=== PATIENT | male | born 1945 | race Caucasian/White ===

== ENCOUNTER 2018-03-14 12:58 | Emergency (ER) | payer MEDICARE, OTHER ==
[2018-03-14] MEDS ORDERED: Aspirin 81 MG Tab.Chew PO ONE (13:37)
--- NOTE | 2018-03-14 13:37 | EDM.PDOC ---
ED HPI GENERAL MEDICAL PROBLEM - General Chief Complaint: Cardiovascular Problem Stated Complaint: CP Time Seen by Provider: 03/14/18 13:12 Source of Information: Reports: Patient History Limitations: Reports: No Limitations - History of Present Illness INITIAL COMMENTS - FREE TEXT/NARRATIVE: Silvino is a 72 yo male who presents to the ER after calling in talking to clinic nurse. States he was scheduled to see Dr. Mccain, his primary provider, at 2:15 today. Admits the chest discomfort had worsened with exertion so thought he better call in to see if he should be seen sooner. States he has been having some midsternal chest pain that radiates into his left arm and neck. States at rest the pain subsides but with any exertion seems to get worse. States it began on Monday while playing kickball with his grandchildren but went away. Admits to several bouts over the last couple of days and the pain will return with any increased activity. Feels that amount of exertion he could tolerate is getting worse as well. Denies any shortness of breath. No prior cardiac history. Onset: Gradual Onset Date: 03/10/18 Location: Reports: Chest Quality: Reports: Burning, Pressure Improves with: Reports: Rest Worsens with: Reports: Movement Associated Symptoms: Reports: Chest Pain. Denies: Diaphoresis, Nausea/Vomiting , Shortness of Breath, Syncope - Related Data Allergies Allergy/AdvReac Type Severity Reaction Status Date / Time No Known Allergies Allergy Verified 03/14/18 13:14 Home Meds: Home Meds . [No Known Home Meds] 10/22/15 [History] Past Medical History - Past Health History Medical/Surgical History: Denies Medical/Surgical History Genitourinary History: Reports: Prostate Disorder Other Genitourinary History: prostate surgery for CA Oncologic (Cancer) History: Reports: Prostate Social & Family History - Family History Family Medical History: Noncontributory - Tobacco Use Smoking Status *Q: Never Smoker Second Hand Smoke Exposure: No - Caffeine Use Caffeine Use: Reports: None - Recreational Drug Use Recreational Drug Use: No ED ROS GENERAL - Review of Systems Review Of Systems: ROS reveals no pertinent complaints other than HPI. Constitutional: Reports: No Symptoms HEENT: Reports: No Symptoms Respiratory: Denies: Shortness of Breath, Cough Cardiovascular: Reports: Chest Pain, Dyspnea on Exertion. Denies: Edema, Lightheadedness, Palpitations, Syncope GI/Abdominal: Reports: No Symptoms : Reports: No Symptoms Skin: Reports: No Symptoms Neurological: Reports: No Symptoms ED EXAM, GENERAL - Physical Exam Exam: See Below Exam Limited By: No Limitations General Appearance: Alert, Mild Distress Ears: Normal External Exam, Normal Canal, Hearing Grossly Normal, Normal TMs Nose: Normal Inspection, No Blood Throat/Mouth: Normal Inspection, Normal Lips, Normal Teeth, Normal Gums, Normal Oropharynx, Normal Voice, No Airway Compromise Head: Atraumatic, Normocephalic Neck: Normal Inspection, Supple Respiratory/Chest: No Respiratory Distress, Lungs Clear, Normal Breath Sounds, No Accessory Muscle Use Cardiovascular: Normal Peripheral Pulses, Regular Rate, Rhythm, No Edema, No Murmur GI/Abdominal: Normal Bowel Sounds, Soft, Non-Tender, No Organomegaly, No Distention, No Abnormal Bruit, No Mass, Pelvis Stable Extremities: Normal Inspection, No Pedal Edema, Normal Capillary Refill Neurological: Alert, Oriented, Normal Cognition, No Motor/Sensory Deficits Psychiatric: Normal Affect, Normal Mood Skin Exam: Warm, Dry, Intact, Normal Color, No Rash EKG INTERPRETATION EKG Date: 03/14/18 Rhythm: NSR ST-T: Other (t-wave inversion V1-V4) Comparison: NA - No Prior EKG Course - Vital Signs Last Recorded V/S: Last Vital Signs Temp 97.2 F 03/14/18 12:59 Pulse 73 03/14/18 12:59 Resp 20 03/14/18 12:59 BP 127/82 03/14/18 12:59 Pulse Ox 100 03/14/18 12:59 - Orders/Labs/Meds Orders: Active Orders 24 hr Category Date Time Status Chest 2V [CR] Stat Exams 03/14/18 13:09 Ordered BASIC METABOLIC PANEL,BMP [CHEM] Stat Lab 03/14/18 13:15 Received CREATINE KINASE,CK [CHEM] Stat Lab 03/14/18 13:15 Received INR,PT,PROTHROMBIN TIME [COAG] Stat Lab 03/14/18 13:15 Received TROPONIN I [CHEM] Stat Lab 03/14/18 13:15 Received EKG 12 Lead [EK] Routine Ther 03/14/18 13:05 Ordered Labs: Laboratory Tests 03/14/18 Range/Units 13:15 WBC 7.3 (5.0-10.0) 10^3/uL RBC 4.35 L (4.50-6.00) 10^6/uL Hgb 13.6 L (14.0-18.0) g/dL Hct 40.7 (40.0-54.0) % MCV 93.6 (82.0-94.0) fL MCH 31.3 (27.0-32.0) pg MCHC 33.4 (33.0-38.0) g/dL RDW Coeff of Rina 13.1 (11.0-15.0) % Plt Count 229 (150-400) 10^3/uL Neut % (Auto) 68.9 (35-85) % Lymph % (Auto) 21.6 (10-55) % [place] % (Auto) 7.9 (0-16) % Eos % (Auto) 1.1 (0-5) % Baso % (Auto) 0.5 (0-3) % Neut # (Auto) 5.04 (1.80-7.00) 10^3/uL Lymph # (Auto) 1.58 (1.00-4.80) 10^3/uL [place] # (Auto) 0.58 (0.00-0.80) 10^3/uL Eos # (Auto) 0.08 (0.00-0.45) 10^3/uL Baso # (Auto) 0.04 10^3/uL Departure - Departure Time of Disposition: 14:34 Disposition: DC/Tfer to Acute Hospital 02 Reason for Transfer *Q: Primary PCI Indicated Clinical Impression: Unstable angina Instructions: Heart Attack, [id number], Angina Pectoris, [id number] - Problem List & Annotations (1) Unstable angina SNOMED Code(s): 3636891, 804590701 Code(s): I20.0 - UNSTABLE ANGINA Status: Acute Current Visit: Yes - Problem List Review Problem List Initiated/Reviewed/Updated: Yes - My Orders Last 24 Hours: My Active Orders 03/14/18 13:05 EKG 12 Lead [EK] Routine 03/14/18 13:09 Chest 2V [CR] Stat 03/14/18 13:15 BASIC METABOLIC PANEL,BMP [CHEM] Stat CREATINE KINASE,CK [CHEM] Stat INR,PT,PROTHROMBIN TIME [COAG] Stat TROPONIN I [CHEM] Stat - Assessment/Plan Last 24 Hours: My Active Orders 03/14/18 13:05 EKG 12 Lead [EK] Routine 03/14/18 13:09 Chest 2V [CR] Stat 03/14/18 13:15 BASIC METABOLIC PANEL,BMP [CHEM] Stat CREATINE KINASE,CK [CHEM] Stat INR,PT,PROTHROMBIN TIME [COAG] Stat TROPONIN I [CHEM] Stat Plan: Consulted with Dr. Mccain in regards to Silvino's condition. Due to residual discomfort into his neck and further worsening of symptoms while present, Dr. Mccain advised cardiac consultation with further workup. Discussed findings with Silvino and he requested [facility] in [place]. Consulted with Dr. Kidd ( regional facilities manager) and Dr. Amaya (hospitalist) at [facility] in [place] who accepted transfer. Will discharge and transfer via ALS to . Discussed risks and benefits of transfer with Silvino. Risks of transfer included MVA, worsening of condition, cardiac . Benefits of transfer included specialized cardiac care and cardiac intervention. Risks of non- transfer included no specialized cardiac care/interventions at local facility; risks continues with worsening of condition or cardiac . Benefits of non- transfer included staying in familiar environment and close to home. Silvino verbalized understanding and is in agreement with transfer. Will send via ALS to . Currently waiting on bed assignment to discharge.
[2018-03-14 13:39] LABS: CHLORIDE,CL 103 mEq/L (98-106); SODIUM,NA 138 mEq/L (136-145)
[2018-03-14 13:52] VITALS: BP 134/91
[2018-03-14] MEDS ORDERED: Heparin Sodium 10,000 Units/1 ML MDV IVPUSH ONE (14:13)
[2018-03-14] MEDS ORDERED: Clopidogrel 75 MG Tab PO ONE (14:14)
[2018-03-14] MEDS ORDERED: Heparin Sodium/D5W 25,000 UNITS/500 ML BAG IV SCH (14:30)
== END 2018-03-14 14:52 ==
LOC: CC.ED 12:58
DX: I20.0 Unstable angina (principal)
CPT/HCPCS: 36415; 71046; 80048; 82550; 84484; 85025; 85610; 93005; 96365; 96376; 99285; A9270-GY; J1644

== ENCOUNTER → 2018-09-20 | Day surgery (SDC) | payer MEDICARE, OTHER ==
[~2018-09-20] MED LIST: Lactated Ringers 1,000 ML IV SCH; Lidocaine 1% 30 ML SDV ONE
[2018-09-20 11:57] VITALS: BP 123/78
--- NOTE | 2018-09-20 13:13 | OR ---
DATE OF OPERATION: 09/20/2018 PREOPERATIVE DIAGNOSIS: LEFT CARPAL TUNNEL SYNDROME. POSTOPERATIVE DIAGNOSIS: LEFT CARPAL TUNNEL SYNDROME. SURGEON: Ky Leary MD PROCEDURE: RELEASE, CARPAL TUNNEL SYNDROME, LEFT HAND. ANESTHESIA: Local. SPECIMEN: None. INDICATION FOR PROCEDURE: This 73-year-old male has had bilateral carpal tunnel syndrome. The right one was previously done, and he got fairly good results with that. He now presents to have his left side done. DESCRIPTION OF PROCEDURE: After adequate preparation, 1% xylocaine was used without epinephrine to infiltrate an area over the left wrist, longitudinally down along the palmar crease. An incision was made and carried down through the subcutaneous tissue to expose the carpal tunnel. The ligament was incised, and a hemostat was placed inferiorly beneath the ligament. The ligament was then incised sharply down to the hemostat, and completely released the carpal tunnel. There was minimal bleeding at all. Some of the subcutaneous vessels were cauterized. The skin was closed with a 3-0 Vicryl intracuticularly and steri- stripped and sterilely dressed. WILMER/NITA /[id number]
== END ==
LOC: CC.SDS 09:33
PROVIDERS: ATTEND Surgery
DX: G56.02 Carpal tunnel syndrome, left upper limb (principal); I25.10 Atherosclerotic heart disease of native coronary artery without angina pectoris; Z79.02 Long term (current) use of antithrombotics/antiplatelets; Z79.82 Long term (current) use of aspirin
CPT/HCPCS: 64721; J7120

== ENCOUNTER → 2022-02-18 | Day surgery (SDC) | payer MEDICARE, OTHER ==
[~2022-02-18] MED LIST changes: -Lidocaine 1% 30 ML SDV ONE; +Phenylephrine 1% 10 MG/ML SDV ONE; +Propofol 200 MG/20 ML SDV ONE; +fentaNYL 100 MCG/2 ML SDV ONE
[2022-02-18 10:08] VITALS: BP 110/59; PULSE 54
== END ==
LOC: CC.SDS 08:13
PROVIDERS: ATTEND Family Medicine
DX: Z12.11 Encounter for screening for malignant neoplasm of colon (principal); D12.3 Benign neoplasm of transverse colon; D12.5 Benign neoplasm of sigmoid colon; I25.2 Old myocardial infarction; G30.9 Alzheimer's disease, unspecified; F02.80 Dementia in other diseases classified elsewhere, unspecified severity, without behavioral disturbance, psychotic disturbance, mood disturbance, and anxiety; I25.10 Atherosclerotic heart disease of native coronary artery without angina pectoris; Z80.0 Family history of malignant neoplasm of digestive organs; Z85.46 Personal history of malignant neoplasm of prostate; Z98.890 Other specified postprocedural states; Z79.899 Other long term (current) drug therapy
CPT/HCPCS: 00812; J2370; J2704; J3010

== ENCOUNTER → 2023-03-10 | Day surgery (SDC) | payer MEDICARE, OTHER ==
[~2023-03-10] MED LIST changes: +Ketamine 200 MG/20 ML MDV ONE; -fentaNYL 100 MCG/2 ML SDV ONE; +fentaNYL 50 MCG/ML SDV ONE
[2023-03-10 12:37] VITALS: BP 126/62; PULSE 45
== END ==
LOC: CC.SDS 10:51
PROVIDERS: ATTEND Family Medicine
DX: Z12.11 Encounter for screening for malignant neoplasm of colon (principal); D12.0 Benign neoplasm of cecum; D12.3 Benign neoplasm of transverse colon; G30.9 Alzheimer's disease, unspecified; F02.80 Dementia in other diseases classified elsewhere, unspecified severity, without behavioral disturbance, psychotic disturbance, mood disturbance, and anxiety; E55.9 Vitamin D deficiency, unspecified; I25.10 Atherosclerotic heart disease of native coronary artery without angina pectoris; Z85.46 Personal history of malignant neoplasm of prostate; Z98.890 Other specified postprocedural states; Z86.010 Personal history of colon polyps; Z79.899 Other long term (current) drug therapy
CPT/HCPCS: 00811; 45380; 88305; 99100; J2370; J2704; J3010; J3490; J7120